=== PATIENT | female | born 1935 | race Caucasian/White ===

== ENCOUNTER 2016-12-11 13:42 | Emergency (ER) | payer MEDICARE, OTHER ==
[2016-12-11 13:56] LABS: #Basophils 0.1 thou/uL (0.0-0.2); #Eosinphils 0.1 thou/uL (0.0-0.7); #Lymphocytes 1.5 thou/uL (1.20-3.40); #Monocytes 0.6 thou/uL (0.11-0.59); #Neutrophils 9.5 thou/uL (1.40-6.50); %Basophils 0.7 % (0.0-1.0); %Eosinophils 0.5 % (0.0-10.0); %Monocytes 5.2 % (0.0-10.0); %Neutrophils 80.7 % (42.0-75.0); Hemoglobin 14.7 g/dL (12.0-16.0); Mean Corpuscular HGB CONC 33.8 g/dL (32.0-36.0); Mean Corpuscular Volume 94.7 fl (81.0-99.0); Mean Platelet Volume 7.7 fL (7.4-10.4); Platelet Count 218 thou/uL (130-400); RBC Distribution Width 11.5 % (11.5-14.5); Red Blood Cell (RBC) Count 4.58 mill/uL (4.20-5.40); White Blood Cell (WBC) Count 11.7 thou/uL (4.8-10.8)
[2016-12-11 14:14] LABS: ALT (SGPT) 24 U/L (0-55); AST (SGOT) 29 U/L (5-34); Albumin 4.1 g/dL (3.4-4.8); Alkaline Phosphatase 75 U/L (40-150); Anion Gap 19 mmol/L (10-20); BUN (Urea Nitrogen) 17 mg/dL (9.8-20.1); Bilirubin, Total 0.5 mg/dL (0.2-1.2); Calc. Creatinine Clearance 0 mL/min (70-130); Calcium 9.5 mg/dL (7.8-10.44); Carbon Dioxide 18 mmol/L (23-31); Chloride 97 mmol/L (98-107); Estimated GFR-MDRD 66; Globulin 3.2 g/dL (2.4-3.5); Glucose 154 mg/dL (83-110); Potassium 3.8 mmol/L (3.5-5.1); Protein, Total 7.3 g/dL (5.8-8.1); Sodium 130 mmol/L (136-145)
[2016-12-11 14:15] LABS: Troponin I Less than 0.010 ng/mL (< 0.028)
[2016-12-11 14:20] LABS: CKMB 9.3 ng/mL (0-6.6)
[2016-12-11 14:26] LABS: Bilirubin Negative (Negative); Blood, Urine Negative (Negative); Clarity Clear (Clear); Glucose, Urine (Dipstick) Negative (Negative); Leukocyte Negative (Negative); Nitrite Negative (Negative); Protein, Urine (Dipstick) Negative (Neg-Trace); Specific Gravity, Urine 1.015 (1.005-1.030); Urobilinogen 0.2 mg/dL (0.2-1.0); pH, Urine 6.5 (5.0-9.0)
[2016-12-11 14:28] LABS: INR-International Normal Ratio 1.7; PTT 42.2 SEC (22.9-36.1); Prothrombin Time 19.8 SEC (12.0-14.7)
--- NOTE | 2016-12-11 22:08 | RAD ---
PORTABLE CHEST 12/11/16 An AP portable film at 1402 shows a normal sized heart for age. The lungs are clear. No infiltrate o r effusion was seen. There is no vascular congestion or edema. Some faint calcification is suggested in the aortic arch. IMPRESSION: No acute thoracic findings. POS: HOME
--- NOTE | 2016-12-12 02:19 | CT ---
PRELIMINARY REPORT/[facility]/EMERGENCY AFTER HOURS PROCEDURE: Addendum created by Kerry Burkett MD on 12/11/2016 2:03 PM Central Time ([place] \T\ [place]) HUGO Phillips was notified of these results by telephone call from Dr. Kerry Burkett 12/11/2016 2:03 PM CDT and acknowledged receipt of this notification. Initial Report created on 12/11/2016 2:01 PM Central Time ([place] \T\ [place]) EXAM: CT Head Without Intravenous Contrast ([id number]) CLINICAL HISTORY: The patient is a 81 years female; Signs and symptoms; Dizziness; Patient HX: Dizziness, nausea, vomi ting onset at noonExamination order is timed 12/11/2016 1:50 PM. TECHNIQUE: Axial computed tomography images of the head/brain without intravenous contrast. COMPARISON: No relevant prior studies available. FINDINGS: BRAIN: The ventricles and sulci are diffusely enlarged, consistent with volume loss / atrophy. There is lucency in the cerebral white matter, consistent with microvascular disease. There is chronic sm all right occipital infarct. Coy white differentiation is intact. There are no extra-axial fluid co llections. No evidence of mass. There is no mass effect or midline shift. VENTRICLES: See above. BONES/JOINTS: Unremarkable as visualized. No acute fracture. SOFT TISSUES: Unremarkable as visualized. VASCULATURE: There is vascular calcification. SINUSES: Unremarkable as visualized. No acute sinusitis. MASTOID AIR CELLS: Unremarkable as visualized. No mastoid effusion. IMPRESSION: 1. No evidence of acute intracranial abnormality. No evidence of acute infarction, hemorrhage, or ma ss. 2. Atrophy, chronic right occipital infarct, and microvascular disease. Thank you for allowing us to participate in the care of your patient. Dictated and Authenticated by: Kerry Burkett MD 12/11/2016 2:01 PM Central Time ([place] \T\ [place]) FINAL REPORT CT OF THE BRAIN WITHOUT CONTRAST 12/11/[address] was done emergently for evaluation of mental status changes. Generalized atrophy is present with mild compensatory dilatation of the ventricles. There is evidenc e of a small old right occipital infarct. Otherwise, chronic ischemic changes predominant. There wer e no findings strongly suggestive of acute stroke. No mass, edema, or bleeding was seen. The visible paranasal sinuses and mastoid air cells are clear. Each IAC was normal in size. IMPRESSION: Chronic changes as noted, but no definite acute intracranial findings. Report in agreement with preliminary reading by [facility]. POS: HOME
== END 2016-12-11 15:13 | disposition short-term general hospital (02) ==
LOC: BURERS 13:42
DX: I63.9 Cerebral infarction, unspecified (principal); E87.1 Hypo-osmolality and hyponatremia; I10 Essential (primary) hypertension; Z79.899 Other long term (current) drug therapy
CPT/HCPCS: 36416; 51701; 70450; 71010; 80053; 81003; 82553; 83605; 84484; 85025; 85610; 85730; 93005; 94760; A4353

== ENCOUNTER 2018-05-13 19:44 | Emergency (ER) | payer MEDICARE, OTHER ==
[2018-05-13] MEDS ORDERED: Ondansetron HCl/PF 4 MG/2 ML Vial ONE (20:12)
[2018-05-13] MEDS ORDERED: Fentanyl 100 MCG/2 ML VIAL ONE ×2 (20:26→20:41)
[2018-05-13 20:35] LABS: #Basophils 0.1 thou/uL (0.0-0.2); #Eosinphils 0.1 thou/uL (0.0-0.7); #Lymphocytes 1.6 thou/uL (1.20-3.40); #Monocytes 0.8 thou/uL (0.11-0.59); #Neutrophils 10.4 thou/uL (1.40-6.50); %Basophils 0.6 % (0.0-1.0); %Eosinophils 0.8 % (0.0-10.0); %Lymphocytes 12.6 % (21.0-51.0); %Neutrophils 80.1 % (42.0-75.0); Hemoglobin 14.5 g/dL (12.0-16.0); Mean Corpuscular HGB CONC 34.8 g/dL (32.0-36.0); Mean Corpuscular Hemoglobin 30.5 pg (27.0-31.0); Mean Corpuscular Volume 87.7 fL (78.0-98.0); Mean Platelet Volume 7.9 fL (7.4-10.4); Platelet Count 323 thou/uL (130-400); RBC Distribution Width 11.9 % (11.5-14.5); Red Blood Cell (RBC) Count 4.76 mill/uL (4.20-5.40)
[2018-05-13 20:45] LABS: ALT (SGPT) 17 U/L (8-55); AST (SGOT) 17 U/L (5-34); Albumin 4.7 g/dL (3.4-4.8); Alkaline Phosphatase 80 U/L (40-150); Anion Gap 17 mmol/L (10-20); BUN (Urea Nitrogen) 15 mg/dL (9.8-20.1); Bilirubin, Total 0.5 mg/dL (0.2-1.2); Calc. Creatinine Clearance 0 mL/min (70-130); Calcium 10.4 mg/dL (7.8-10.44); Carbon Dioxide 24 mmol/L (23-31); Chloride 96 mmol/L (98-107); Estimated GFR-MDRD 63; Glucose 129 mg/dL (83-110); Lipase 37 U/L (8-78); Potassium 3.8 mmol/L (3.5-5.1); Protein, Total 7.7 g/dL (6.0-8.3); Sodium 133 mmol/L (136-145)
[2018-05-13 20:46] LABS: CKMB 3.1 ng/mL (0-6.6); Troponin I Less than 0.010 ng/mL (< 0.028)
[2018-05-13 21:06] LABS: Bilirubin Negative (Negative); Clarity Clear (Clear); Glucose, Urine (Dipstick) Negative (Negative); Leukocyte Negative (Negative); Nitrite Negative (Negative); Protein, Urine (Dipstick) Negative (Neg-Trace); Specific Gravity, Urine 1.015 (1.005-1.030); Urobilinogen 0.2 mg/dL (0.2-1.0); pH, Urine 6.5 (5.0-9.0)
--- NOTE | 2018-05-13 21:13 | RAD ---
PORTABLE CHEST: 05/13/18 An AP portable film at 195 is compared with a 12/11/16 study. There has been no adverse interval change. The heart is normal in size and the lungs are clear. There is no congestion, edema, or pleural fluid. No free air was seen beneath the diaphragm. IMPRESSION: No acute thoracic findings. POS: HOME
--- NOTE | 2018-05-13 22:03 | CT ---
CT ABDOMEN AND PELVIS WITH CONTRAST: 05/13/[address] of the abdomen and pelvis was done for evaluation of nausea, vomiting and abdominal pain. A xial slices were done after giving IV contrast. Coronal and sagittal reconstructions were done afterw ards. There is dilated fluid filled loops of small bowel beginning in the mid small bowel region through th e distal small bowel. Loops are ranging up to 3 cm wide with fluid in them. No particular wall thicke leanne was seen. No free air or free fluid was seen. The colon is decompressed and normal in size. The patient appears to have a mobile cecum with the cecum present in the midline. The lung bases are clear. The liver, spleen, pancreas, adrenal glands, kidneys, gallbladder and abdom inal aorta all showed no acute findings. The right kidney is malrotated. CT of the pelvis was remarkable only for the dilated loops of small bowel. No pelvic masses, fluid co llections, or inflammatory changes were seen. The patient has severe degenerative changes of the low thoracic and lumbar spine. There is nearly a g rade II spondylolisthesis of L4 on L5 that appears to be due to facet arthritis. This narrows the spi nal canal at this region resulting in prominent central canal stenosis. Degenerated discs are seen at all lumbar levels. An additional finding is a small hiatal hernia. IMPRESSION: 1. Dilated fluid filled loops of mid to distal small bowel suggestive of a small bowel obstructi on. 2. Small hiatal hernia. 3. Severe degenerative change of the spine with severe spondylolisthesis of L4 on L5. POS: HOME
--- NOTE | 2018-05-14 07:21 | RAD ---
PORTABLE CHEST: DATE: 05/13/18. FINDINGS: An AP portable film at 2144 is compared with a study done earlier the same evening. The lungs continue to be clear. The heart size is normal and there is no congestive change. In the interval, an NG tube has been placed. While it is difficult to see the tip very well, the NG tube does appear to take a normal course into the proximal stomach. IMPRESSION: No acute changes. Nasogastric tube course seems appropriate. POS: HOME
== END 2018-05-13 22:30 | disposition short-term general hospital (02) ==
LOC: BURERS 19:44
DX: K56.609 Unspecified intestinal obstruction, unspecified as to partial versus complete obstruction (principal); I10 Essential (primary) hypertension; Z79.899 Other long term (current) drug therapy
CPT/HCPCS: 51701; 71045; 74177; 80053; 81003; 82553; 83605; 83690; 84484; 85025; 87040; 93005; 96361; 96374; 96375; A4353; J2405; J3010

== ENCOUNTER 2020-04-27 12:42 | Emergency (ER) | payer MEDICARE, OTHER | END 2020-04-27 13:00 | disposition home or self-care (01) | LOC: BURERS 12:42 | DX: I95.9 Hypotension, unspecified (principal); T50.905A Adverse effect of unspecified drugs, medicaments and biological substances, initial encounter; I10 Essential (primary) hypertension; Z79.899 Other long term (current) drug therapy | CPT/HCPCS: 99281 ==

== ENCOUNTER 2021-01-08 10:46 | Inpatient (IN) | payer MEDICARE, OTHER ==
[2021-01-08 11:18] LABS: Hemoglobin 12.7 g/dL (12.0-16.0); Mean Corpuscular HGB CONC 32.7 g/dL (32.0-36.0); Mean Corpuscular Hemoglobin 28.6 pg (27.0-31.0); Mean Corpuscular Volume 87.5 fL (78.0-98.0); Mean Platelet Volume 6.5 fL (7.4-10.4); Platelet Count 287 thou/uL (130-400); RBC Distribution Width 13.7 % (11.5-14.5); Red Blood Cell (RBC) Count 4.44 mill/uL (4.20-5.40); White Blood Cell (WBC) Count 20.9 thou/uL (4.8-10.8)
[2021-01-08 11:37] LABS: ALT (SGPT) 25 U/L (8-55); AST (SGOT) 18 U/L (5-34); Alkaline Phosphatase 106 U/L (40-110); Anion Gap 18 mmol/L (10-20); BUN (Urea Nitrogen) 14 mg/dL (9.8-20.1); Bilirubin, Total 0.6 mg/dL (0.2-1.2); Calc. Creatinine Clearance 0 mL/min (70-130); Calcium 9.5 mg/dL (7.8-10.44); Carbon Dioxide 23 mmol/L (23-31); Chloride 101 mmol/L (98-107); Globulin 2.5 g/dL (2.4-3.5); Glucose 123 mg/dL (83-110); Potassium 4.2 mmol/L (3.5-5.1); Protein, Total 6.5 g/dL (5.8-8.1); Sodium 138 mmol/L (136-145)
[2021-01-08 11:38] LABS: Band 12 % (5-11); Lymphocytes 2 % (21-51); MDiff Complete? YES; Monocytes 4 % (0-10); Neutrophil 82 % (42-75); Platelet Morphology Comment Appears Adequate; RBC Morphology Normal
[2021-01-08] MEDS ORDERED: Fentanyl 100 MCG/2 ML VIAL ONE ×3 (12:22→20:46)
[2021-01-08 12:28] LABS: Bilirubin Negative (Negative); Blood, Urine Negative (Negative); Clarity Clear (Clear); Glucose, Urine (Dipstick) Negative (Negative); Ketone, Urine Negative (Negative); Leukocyte Negative (Negative); Nitrite Negative (Negative); Protein, Urine (Dipstick) Negative (Neg-Trace); Specific Gravity, Urine 1.015 (1.005-1.030); Urobilinogen 0.2 mg/dL (Less than 2)
[2021-01-08] MEDS: Fentanyl 100 MCG/2 ML VIAL SLOW IVP PRN ×2 (17:38→20:51)
[2021-01-08 17:47] VITALS: BMI 29.7
[2021-01-08] MEDS ORDERED: Ondansetron ODT 4 MG TAB PO PRN (20:34)
[2021-01-08] MEDS ORDERED: Polyethylene Glycol 3350 17 GM Packet PO PRN (20:34)
[2021-01-08] MEDS: Enoxaparin Sodium 40 MG/0.4 ML SYRINGE SC SCH (20:50)
[2021-01-08] MEDS: Atorvastatin Calcium 10 MG TAB PO SCH (20:50)
[2021-01-08] MEDS: Pregabalin 50 MG CAP PO SCH (20:51)
[2021-01-08] MEDS: Mesalamine DR 400 mg Capsule PO SCH (20:52)
[2021-01-08] MEDS ORDERED: ALPRAZolam 0.5 MG TAB PO PRN (21:06)
[2021-01-09] MEDS ORDERED: Fentanyl 100 MCG/2 ML VIAL ONE ×2 (06:22→10:09)
[2021-01-09] MEDS: Fentanyl 100 MCG/2 ML VIAL SLOW IVP PRN ×2 (06:28→10:26)
[2021-01-09 07:13] LABS: #Basophils 0.1 thou/uL (0.0-0.2); #Lymphocytes 1.3 thou/uL (1.20-3.40); #Monocytes 0.8 thou/uL (0.11-0.59); #Neutrophils 10.3 thou/uL (1.40-6.50); %Basophils 0.5 % (0.0-1.0); %Eosinophils 0.4 % (0.0-10.0); %Lymphocytes 10.7 % (21.0-51.0); %Monocytes 6.3 % (0.0-10.0); %Neutrophils 82.1 % (42.0-75.0); Hemoglobin 12.8 g/dL (12.0-16.0); Mean Corpuscular HGB CONC 32.5 g/dL (32.0-36.0); Mean Corpuscular Hemoglobin 28.4 pg (27.0-31.0); Mean Corpuscular Volume 87.6 fL (78.0-98.0); Mean Platelet Volume 6.6 fL (7.4-10.4); Platelet Count 278 thou/uL (130-400); RBC Distribution Width 13.5 % (11.5-14.5); White Blood Cell (WBC) Count 12.5 thou/uL (4.8-10.8)
[2021-01-09] MEDS: Vit A,C & E/Lutein/Minerals Tablet PO SCH (09:56)
[2021-01-09] MEDS: Multivit, Therapeutic 1 TAB PO SCH (09:56)
[2021-01-09] MEDS: Calcium Carbonate 600 MG + Vit D TAB PO SCH (09:57)
[2021-01-09] MEDS: Folic Acid 1 MG TAB PO SCH (09:57)
[2021-01-09] MEDS: Cyanocobalamin (Vitamin B-12) 1,000 MCG TAB PO SCH (09:57)
[2021-01-09] MEDS: Clopidogrel Bisulfate 75 MG TAB PO SCH (09:57)
[2021-01-09] MEDS: Milk Of Magnesia 30 ML UDCUP PO SCH (09:58)
[2021-01-09] MEDS: Mesalamine DR 400 mg Capsule PO SCH ×2 (09:59→21:42)
[2021-01-09] MEDS: Enoxaparin Sodium 40 MG/0.4 ML SYRINGE SC SCH (21:41)
[2021-01-09] MEDS: Acetaminophen 325 MG TAB PO PRN (21:42)
[2021-01-09] MEDS: Atorvastatin Calcium 10 MG TAB PO SCH (21:43)
[2021-01-09] MEDS: Melatonin 3 MG TAB PO SCH (21:44)
[2021-01-09 21:47] LABS: SARS-CoV-2 NAA Rapid Test Not Detected (NotDetected)
[2021-01-09] MEDS: Pregabalin 50 MG CAP PO SCH (22:52)
[2021-01-10] MEDS ORDERED: Fentanyl 100 MCG/2 ML VIAL ONE ×4 (01:28→21:26)
[2021-01-10] MEDS: Fentanyl 100 MCG/2 ML VIAL SLOW IVP PRN ×4 (01:33→21:32)
[2021-01-10 06:01] LABS: #Basophils 0.1 thou/uL (0.0-0.2); #Eosinphils 0.2 thou/uL (0.0-0.7); #Lymphocytes 1.4 thou/uL (1.20-3.40); #Monocytes 1.1 thou/uL (0.11-0.59); #Neutrophils 9.6 thou/uL (1.40-6.50); %Basophils 0.6 % (0.0-1.0); %Eosinophils 1.7 % (0.0-10.0); %Lymphocytes 11.2 % (21.0-51.0); %Monocytes 9.2 % (0.0-10.0); %Neutrophils 77.4 % (42.0-75.0); Hemoglobin 12.2 g/dL (12.0-16.0); Mean Corpuscular HGB CONC 33.7 g/dL (32.0-36.0); Mean Corpuscular Volume 86.1 fL (78.0-98.0); Mean Platelet Volume 7.1 fL (7.4-10.4); Platelet Count 231 thou/uL (130-400); RBC Distribution Width 13.2 % (11.5-14.5); Red Blood Cell (RBC) Count 4.19 mill/uL (4.20-5.40); White Blood Cell (WBC) Count 12.4 thou/uL (4.8-10.8)
[2021-01-10] MEDS: Milk Of Magnesia 30 ML UDCUP PO SCH (09:10)
[2021-01-10] MEDS: Vit A,C & E/Lutein/Minerals Tablet PO SCH (09:10)
[2021-01-10] MEDS: Folic Acid 1 MG TAB PO SCH (09:11)
[2021-01-10] MEDS: Multivit, Therapeutic 1 TAB PO SCH (09:11)
[2021-01-10] MEDS: Cyanocobalamin (Vitamin B-12) 1,000 MCG TAB PO SCH (09:11)
[2021-01-10] MEDS: Clopidogrel Bisulfate 75 MG TAB PO SCH (09:11)
[2021-01-10] MEDS: Calcium Carbonate 600 MG + Vit D TAB PO SCH (09:13)
[2021-01-10] MEDS: Acetaminophen 325 MG TAB PO PRN ×2 (09:41→20:52)
[2021-01-10] MEDS: Mesalamine DR 400 mg Capsule PO SCH ×2 (09:43→20:50)
[2021-01-10 20:34] LABS: SARS-CoV-2 IgG Ab Non-Reactive (NonReactive); SARS-CoV-2 IgG Index 0.02 S/CO (< 1.40)
[2021-01-10] MEDS: Pregabalin 50 MG CAP PO SCH (20:50)
[2021-01-10] MEDS: Atorvastatin Calcium 10 MG TAB PO SCH (20:52)
[2021-01-10] MEDS: Melatonin 3 MG TAB PO SCH (20:52)
[2021-01-10] MEDS: Enoxaparin Sodium 40 MG/0.4 ML SYRINGE SC SCH (20:53)
[2021-01-11 05:59] VITALS: TEMP 97.6
[2021-01-11] MEDS ORDERED: HYDROcodone/Acetaminophen 5/325 mg Tablet PO PRN (07:08)
[2021-01-11] MEDS: Milk Of Magnesia 30 ML UDCUP PO SCH (09:01)
[2021-01-11] MEDS: Cyanocobalamin (Vitamin B-12) 1,000 MCG TAB PO SCH (09:03)
[2021-01-11] MEDS: Clopidogrel Bisulfate 75 MG TAB PO SCH (09:03)
[2021-01-11] MEDS: Calcium Carbonate 600 MG + Vit D TAB PO SCH (09:03)
[2021-01-11] MEDS: Folic Acid 1 MG TAB PO SCH (09:03)
[2021-01-11] MEDS: Multivit, Therapeutic 1 TAB PO SCH (09:03)
[2021-01-11] MEDS: Mesalamine DR 400 mg Capsule PO SCH (09:05)
[2021-01-11] MEDS: Vit A,C & E/Lutein/Minerals Tablet PO SCH (09:14)
[2021-01-11 09:15] VITALS: BP 125/71
== END 2021-01-11 10:33 | disposition swing bed (61) | DRG 536 ==
LOC: BURERS 10:46 → BURMED 13:50
PROVIDERS: ADMIT Family Medicine; ATTEND Family Medicine
DX: S32.592A Other specified fracture of left pubis, initial encounter for closed fracture (principal); K51.90 Ulcerative colitis, unspecified, without complications; W18.30XA Fall on same level, unspecified, initial encounter; D72.829 Elevated white blood cell count, unspecified; F01.50 Vascular dementia, unspecified severity, without behavioral disturbance, psychotic disturbance, mood disturbance, and anxiety; R26.89 Other abnormalities of gait and mobility; E78.5 Hyperlipidemia, unspecified; G62.9 Polyneuropathy, unspecified; F41.9 Anxiety disorder, unspecified; F32.9 Major depressive disorder, single episode, unspecified; E53.8 Deficiency of other specified B group vitamins; R26.9 Unspecified abnormalities of gait and mobility; E55.9 Vitamin D deficiency, unspecified; Z85.3 Personal history of malignant neoplasm of breast; Z90.710 Acquired absence of both cervix and uterus; Z86.73 Personal history of transient ischemic attack (TIA), and cerebral infarction without residual deficits
CPT/HCPCS: 0241U; 36415; 51701; 70450; 71045; 72125; 72192; 80053; 81003; 83605; 85025; 86769; 87040; 93005; 96374; J1650; J3010

== ENCOUNTER 2021-01-11 10:33 | Inpatient (IN) | payer MEDICARE, OTHER ==
[2021-01-11] MEDS ORDERED: Enoxaparin Sodium 40 MG/0.4 ML SYRINGE SC SCH (12:45)
[2021-01-11] MEDS: HYDROcodone/Acetaminophen 5/325 mg Tablet PO PRN (17:07)
[2021-01-11] MEDS: Acetaminophen 325 MG TAB PO PRN (20:00)
[2021-01-11] MEDS: Enoxaparin Sodium 40 MG/0.4 ML SYRINGE SC SCH (21:14)
[2021-01-11] MEDS: Mesalamine DR 400 mg Capsule PO SCH (21:14)
[2021-01-11] MEDS: Pregabalin 50 MG CAP PO SCH (21:15)
[2021-01-11] MEDS: Melatonin 3 MG TAB PO SCH (21:15)
[2021-01-11] MEDS: Atorvastatin Calcium 10 MG TAB PO SCH (21:15)
[2021-01-12 06:02] LABS: Hemoglobin 12.3 g/dL (12.0-16.0); Platelet Count 280 thou/uL (130-400)
[2021-01-12] MEDS: Calcium Carbonate 500 MG TAB PO SCH (09:00)
[2021-01-12] MEDS: Multivit, Therapeutic 1 TAB PO SCH (09:00)
[2021-01-12] MEDS: Folic Acid 1 MG TAB PO SCH (09:00)
[2021-01-12] MEDS: Clopidogrel Bisulfate 75 MG TAB PO SCH (09:00)
[2021-01-12] MEDS ORDERED: Enoxaparin Sodium 40 MG/0.4 ML SYRINGE SC SCH (09:00)
[2021-01-12] MEDS: Vit A,C & E/Lutein/Minerals Tablet PO SCH (09:00)
[2021-01-12] MEDS: Cyanocobalamin (Vitamin B-12) 1,000 MCG TAB PO SCH (09:00)
[2021-01-12] MEDS: Milk Of Magnesia 30 ML UDCUP PO SCH (09:01)
[2021-01-12] MEDS: Mesalamine DR 400 mg Capsule PO SCH ×2 (09:07→20:29)
[2021-01-12] MEDS: HYDROcodone/Acetaminophen 5/325 mg Tablet PO PRN ×2 (09:13→23:26)
[2021-01-12] MEDS: Atorvastatin Calcium 10 MG TAB PO SCH (20:29)
[2021-01-12] MEDS: Enoxaparin Sodium 40 MG/0.4 ML SYRINGE SC SCH (20:29)
[2021-01-12] MEDS: Melatonin 3 MG TAB PO SCH (20:30)
[2021-01-12] MEDS: Pregabalin 50 MG CAP PO SCH (20:30)
[2021-01-12] MEDS: Acetaminophen 325 MG TAB PO PRN (20:31)
[2021-01-13] MEDS: Acetaminophen 325 MG TAB PO PRN ×2 (05:42→19:25)
[2021-01-13] MEDS: Multivit, Therapeutic 1 TAB PO SCH (08:26)
[2021-01-13] MEDS: Vit A,C & E/Lutein/Minerals Tablet PO SCH (08:27)
[2021-01-13] MEDS: Folic Acid 1 MG TAB PO SCH (08:27)
[2021-01-13] MEDS: Cyanocobalamin (Vitamin B-12) 1,000 MCG TAB PO SCH (08:27)
[2021-01-13] MEDS: Mesalamine DR 400 mg Capsule PO SCH ×2 (08:28→20:41)
[2021-01-13] MEDS: Clopidogrel Bisulfate 75 MG TAB PO SCH (08:28)
[2021-01-13] MEDS: Calcium Carbonate 500 MG TAB PO SCH (08:28)
[2021-01-13] MEDS: Milk Of Magnesia 30 ML UDCUP PO SCH (08:28)
[2021-01-13] MEDS: HYDROcodone/Acetaminophen 5/325 mg Tablet PO PRN ×2 (12:52→23:14)
[2021-01-13] MEDS: Melatonin 3 MG TAB PO SCH (20:42)
[2021-01-13] MEDS: Pregabalin 50 MG CAP PO SCH (20:42)
[2021-01-13] MEDS: Atorvastatin Calcium 10 MG TAB PO SCH (20:42)
[2021-01-13] MEDS: Enoxaparin Sodium 40 MG/0.4 ML SYRINGE SC SCH (20:44)
[2021-01-14 05:19] LABS: Hemoglobin 12.7 g/dL (12.0-16.0); Platelet Count 293 thou/uL (130-400)
[2021-01-14] MEDS: Vit A,C & E/Lutein/Minerals Tablet PO SCH (08:25)
[2021-01-14] MEDS: Milk Of Magnesia 30 ML UDCUP PO SCH (08:25)
[2021-01-14] MEDS: Calcium Carbonate 500 MG TAB PO SCH (08:26)
[2021-01-14] MEDS: Multivit, Therapeutic 1 TAB PO SCH (08:26)
[2021-01-14] MEDS: HYDROcodone/Acetaminophen 5/325 mg Tablet PO PRN ×2 (08:26→16:18)
[2021-01-14] MEDS: Folic Acid 1 MG TAB PO SCH (08:27)
[2021-01-14] MEDS: Mesalamine DR 400 mg Capsule PO SCH ×2 (08:27→20:39)
[2021-01-14] MEDS: Clopidogrel Bisulfate 75 MG TAB PO SCH (08:27)
[2021-01-14] MEDS: Cyanocobalamin (Vitamin B-12) 1,000 MCG TAB PO SCH (08:27)
[2021-01-14] MEDS: Pregabalin 50 MG CAP PO SCH (20:40)
[2021-01-14] MEDS: Enoxaparin Sodium 40 MG/0.4 ML SYRINGE SC SCH (20:41)
[2021-01-14] MEDS: Melatonin 3 MG TAB PO SCH (20:41)
[2021-01-14] MEDS: Atorvastatin Calcium 10 MG TAB PO SCH (20:41)
[2021-01-15] MEDS: HYDROcodone/Acetaminophen 5/325 mg Tablet PO PRN ×2 (05:10→21:30)
[2021-01-15] MEDS: Milk Of Magnesia 30 ML UDCUP PO SCH (08:49)
[2021-01-15] MEDS: Cyanocobalamin (Vitamin B-12) 1,000 MCG TAB PO SCH (08:50)
[2021-01-15] MEDS: Clopidogrel Bisulfate 75 MG TAB PO SCH (08:50)
[2021-01-15] MEDS: Vit A,C & E/Lutein/Minerals Tablet PO SCH (08:50)
[2021-01-15] MEDS: Acetaminophen 325 MG TAB PO PRN (08:51)
[2021-01-15] MEDS: Calcium Carbonate 500 MG TAB PO SCH (08:51)
[2021-01-15] MEDS: Folic Acid 1 MG TAB PO SCH (08:51)
[2021-01-15] MEDS: Mesalamine DR 400 mg Capsule PO SCH ×2 (08:51→20:59)
[2021-01-15] MEDS: Multivit, Therapeutic 1 TAB PO SCH (08:51)
[2021-01-15] MEDS: Atorvastatin Calcium 10 MG TAB PO SCH (20:59)
[2021-01-15] MEDS: Enoxaparin Sodium 40 MG/0.4 ML SYRINGE SC SCH (21:00)
[2021-01-15] MEDS: Melatonin 3 MG TAB PO SCH (21:00)
[2021-01-15] MEDS: Pregabalin 50 MG CAP PO SCH (21:01)
[2021-01-16 05:12] LABS: Hemoglobin 12.1 g/dL (12.0-16.0); Platelet Count 311 thou/uL (130-400)
[2021-01-16] MEDS: HYDROcodone/Acetaminophen 5/325 mg Tablet PO PRN ×2 (08:47→16:03)
[2021-01-16] MEDS: Mesalamine DR 400 mg Capsule PO SCH ×2 (08:50→20:58)
[2021-01-16] MEDS: Calcium Carbonate 500 MG TAB PO SCH (08:50)
[2021-01-16] MEDS: Folic Acid 1 MG TAB PO SCH (08:51)
[2021-01-16] MEDS: Vit A,C & E/Lutein/Minerals Tablet PO SCH (08:52)
[2021-01-16] MEDS: Clopidogrel Bisulfate 75 MG TAB PO SCH (08:52)
[2021-01-16] MEDS: Multivit, Therapeutic 1 TAB PO SCH (08:52)
[2021-01-16] MEDS: Cyanocobalamin (Vitamin B-12) 1,000 MCG TAB PO SCH (08:52)
[2021-01-16] MEDS: Milk Of Magnesia 30 ML UDCUP PO SCH (08:55)
[2021-01-16] MEDS: Enoxaparin Sodium 40 MG/0.4 ML SYRINGE SC SCH (20:57)
[2021-01-16] MEDS: Pregabalin 50 MG CAP PO SCH (20:58)
[2021-01-16] MEDS: Atorvastatin Calcium 10 MG TAB PO SCH (20:58)
[2021-01-16] MEDS: Melatonin 3 MG TAB PO SCH (20:58)
[2021-01-17] MEDS: Acetaminophen 325 MG TAB PO PRN ×2 (04:32→17:00)
[2021-01-17] MEDS: HYDROcodone/Acetaminophen 5/325 mg Tablet PO PRN (08:31)
[2021-01-17] MEDS: Milk Of Magnesia 30 ML UDCUP PO SCH (08:33)
[2021-01-17] MEDS: Calcium Carbonate 500 MG TAB PO SCH (08:33)
[2021-01-17] MEDS: Folic Acid 1 MG TAB PO SCH (08:33)
[2021-01-17] MEDS: Clopidogrel Bisulfate 75 MG TAB PO SCH (08:34)
[2021-01-17] MEDS: Cyanocobalamin (Vitamin B-12) 1,000 MCG TAB PO SCH (08:34)
[2021-01-17] MEDS: Mesalamine DR 400 mg Capsule PO SCH ×2 (08:35→20:52)
[2021-01-17] MEDS: Multivit, Therapeutic 1 TAB PO SCH (08:40)
[2021-01-17] MEDS: Vit A,C & E/Lutein/Minerals Tablet PO SCH (08:41)
[2021-01-17] MEDS: Enoxaparin Sodium 40 MG/0.4 ML SYRINGE SC SCH (20:51)
[2021-01-17] MEDS: Atorvastatin Calcium 10 MG TAB PO SCH (20:52)
[2021-01-17] MEDS: Melatonin 3 MG TAB PO SCH (20:52)
[2021-01-17] MEDS: Pregabalin 50 MG CAP PO SCH (20:52)
[2021-01-18] MEDS: Acetaminophen 325 MG TAB PO PRN (04:49)
[2021-01-18 04:52] LABS: Platelet Count 327 thou/uL (130-400)
[2021-01-18] MEDS: Mesalamine DR 400 mg Capsule PO SCH ×2 (08:44→20:56)
[2021-01-18] MEDS: Milk Of Magnesia 30 ML UDCUP PO SCH (08:44)
[2021-01-18] MEDS: Cyanocobalamin (Vitamin B-12) 1,000 MCG TAB PO SCH (08:44)
[2021-01-18] MEDS: Calcium Carbonate 500 MG TAB PO SCH (08:44)
[2021-01-18] MEDS: Vit A,C & E/Lutein/Minerals Tablet PO SCH (08:45)
[2021-01-18] MEDS: Folic Acid 1 MG TAB PO SCH (08:46)
[2021-01-18] MEDS: Multivit, Therapeutic 1 TAB PO SCH (08:46)
[2021-01-18] MEDS: Clopidogrel Bisulfate 75 MG TAB PO SCH (08:46)
[2021-01-18] MEDS: HYDROcodone/Acetaminophen 5/325 mg Tablet PO PRN (08:48)
[2021-01-18] MEDS: Enoxaparin Sodium 40 MG/0.4 ML SYRINGE SC SCH (20:52)
[2021-01-18] MEDS: Atorvastatin Calcium 10 MG TAB PO SCH (20:53)
[2021-01-18] MEDS: Pregabalin 50 MG CAP PO SCH (20:54)
[2021-01-18] MEDS: Melatonin 3 MG TAB PO SCH (20:56)
[2021-01-19] MEDS: Calcium Carbonate 500 MG TAB PO SCH (08:58)
[2021-01-19] MEDS: Clopidogrel Bisulfate 75 MG TAB PO SCH (08:59)
[2021-01-19] MEDS: Folic Acid 1 MG TAB PO SCH (08:59)
[2021-01-19] MEDS: Cyanocobalamin (Vitamin B-12) 1,000 MCG TAB PO SCH (08:59)
[2021-01-19] MEDS: Vit A,C & E/Lutein/Minerals Tablet PO SCH (08:59)
[2021-01-19] MEDS: Mesalamine DR 400 mg Capsule PO SCH ×2 (08:59→20:34)
[2021-01-19] MEDS: Multivit, Therapeutic 1 TAB PO SCH (08:59)
[2021-01-19] MEDS: Milk Of Magnesia 30 ML UDCUP PO SCH (09:00)
[2021-01-19] MEDS: Atorvastatin Calcium 10 MG TAB PO SCH (20:34)
[2021-01-19] MEDS: Pregabalin 50 MG CAP PO SCH (20:34)
[2021-01-19] MEDS: Enoxaparin Sodium 40 MG/0.4 ML SYRINGE SC SCH (20:35)
[2021-01-19] MEDS: Melatonin 3 MG TAB PO SCH (20:35)
[2021-01-20 06:17] LABS: Hemoglobin 11.9 g/dL (12.0-16.0); Platelet Count 388 thou/uL (130-400)
[2021-01-20] MEDS: Calcium Carbonate 500 MG TAB PO SCH (08:55)
[2021-01-20] MEDS: Vit A,C & E/Lutein/Minerals Tablet PO SCH (08:55)
[2021-01-20] MEDS: Mesalamine DR 400 mg Capsule PO SCH ×2 (08:55→20:16)
[2021-01-20] MEDS: Clopidogrel Bisulfate 75 MG TAB PO SCH (08:55)
[2021-01-20] MEDS: Folic Acid 1 MG TAB PO SCH (08:55)
[2021-01-20] MEDS: Multivit, Therapeutic 1 TAB PO SCH (08:55)
[2021-01-20] MEDS: Milk Of Magnesia 30 ML UDCUP PO SCH (08:55)
[2021-01-20] MEDS: Cyanocobalamin (Vitamin B-12) 1,000 MCG TAB PO SCH (08:56)
[2021-01-20] MEDS: Atorvastatin Calcium 10 MG TAB PO SCH (20:16)
[2021-01-20] MEDS: Pregabalin 50 MG CAP PO SCH (20:17)
[2021-01-20] MEDS: Melatonin 3 MG TAB PO SCH (20:18)
[2021-01-20] MEDS: Enoxaparin Sodium 40 MG/0.4 ML SYRINGE SC SCH (20:18)
[2021-01-21] MEDS: Multivit, Therapeutic 1 TAB PO SCH (09:13)
[2021-01-21] MEDS: Vit A,C & E/Lutein/Minerals Tablet PO SCH (09:13)
[2021-01-21] MEDS: Mesalamine DR 400 mg Capsule PO SCH ×2 (09:13→21:55)
[2021-01-21] MEDS: Clopidogrel Bisulfate 75 MG TAB PO SCH (09:13)
[2021-01-21] MEDS: Cyanocobalamin (Vitamin B-12) 1,000 MCG TAB PO SCH (09:13)
[2021-01-21] MEDS: Folic Acid 1 MG TAB PO SCH (09:13)
[2021-01-21] MEDS: Milk Of Magnesia 30 ML UDCUP PO SCH (09:13)
[2021-01-21] MEDS: Losartan Potassium 50 MG TAB PO SCH (09:14)
[2021-01-21] MEDS: Calcium Carbonate 500 MG TAB PO SCH (09:14)
[2021-01-21] MEDS: HYDROcodone/Acetaminophen 5/325 mg Tablet PO PRN (13:37)
[2021-01-21] MEDS: ALPRAZolam 0.5 MG TAB PO PRN (13:40)
[2021-01-21] MEDS: Enoxaparin Sodium 40 MG/0.4 ML SYRINGE SC SCH (21:55)
[2021-01-21] MEDS: Pregabalin 50 MG CAP PO SCH (21:55)
[2021-01-21] MEDS: Melatonin 3 MG TAB PO SCH (21:55)
[2021-01-21] MEDS: Atorvastatin Calcium 10 MG TAB PO SCH (21:55)
[2021-01-22] MEDS ORDERED: Diltiazem 125 MG/25 ML ONE (03:20)
[2021-01-22] MEDS ORDERED: Aspirin Chewable 81 MG TAB ONE (03:21)
[2021-01-22 05:29] LABS: Hemoglobin 11.7 g/dL (12.0-16.0); Platelet Count 405 thou/uL (130-400)
[2021-01-22] MEDS: Acetaminophen 325 MG TAB PO PRN ×2 (05:30→19:56)
[2021-01-22] MEDS: Milk Of Magnesia 30 ML UDCUP PO SCH (08:53)
[2021-01-22] MEDS: Vit A,C & E/Lutein/Minerals Tablet PO SCH (08:53)
[2021-01-22] MEDS: Cyanocobalamin (Vitamin B-12) 1,000 MCG TAB PO SCH (08:53)
[2021-01-22] MEDS: Mesalamine DR 400 mg Capsule PO SCH ×2 (08:53→20:01)
[2021-01-22] MEDS: Folic Acid 1 MG TAB PO SCH (08:54)
[2021-01-22] MEDS: Calcium Carbonate 500 MG TAB PO SCH (08:54)
[2021-01-22] MEDS: Multivit, Therapeutic 1 TAB PO SCH (08:54)
[2021-01-22] MEDS: Losartan Potassium 50 MG TAB PO SCH (08:54)
[2021-01-22] MEDS: Clopidogrel Bisulfate 75 MG TAB PO SCH (08:55)
[2021-01-22] MEDS: HYDROcodone/Acetaminophen 5/325 mg Tablet PO PRN (09:50)
[2021-01-22] MEDS: ALPRAZolam 0.5 MG TAB PO PRN (19:58)
[2021-01-22] MEDS: Pregabalin 50 MG CAP PO SCH (20:00)
[2021-01-22] MEDS: Atorvastatin Calcium 10 MG TAB PO SCH (20:00)
[2021-01-22] MEDS: Enoxaparin Sodium 40 MG/0.4 ML SYRINGE SC SCH (20:01)
[2021-01-22] MEDS: Melatonin 3 MG TAB PO SCH (20:01)
[2021-01-23] MEDS: Calcium Carbonate 500 MG TAB PO SCH (09:03)
[2021-01-23] MEDS: Clopidogrel Bisulfate 75 MG TAB PO SCH (09:03)
[2021-01-23] MEDS: HYDROcodone/Acetaminophen 5/325 mg Tablet PO PRN (09:03)
[2021-01-23] MEDS: Losartan Potassium 50 MG TAB PO SCH (09:05)
[2021-01-23] MEDS: Vit A,C & E/Lutein/Minerals Tablet PO SCH (09:07)
[2021-01-23] MEDS: Folic Acid 1 MG TAB PO SCH (09:07)
[2021-01-23] MEDS: Mesalamine DR 400 mg Capsule PO SCH ×2 (09:08→21:55)
[2021-01-23] MEDS: Cyanocobalamin (Vitamin B-12) 1,000 MCG TAB PO SCH (09:12)
[2021-01-23] MEDS: Multivit, Therapeutic 1 TAB PO SCH (09:12)
[2021-01-23] MEDS: Milk Of Magnesia 30 ML UDCUP PO SCH (09:13)
[2021-01-23] MEDS: Atorvastatin Calcium 10 MG TAB PO SCH (21:55)
[2021-01-23] MEDS: Melatonin 3 MG TAB PO SCH (21:55)
[2021-01-23] MEDS: Pregabalin 50 MG CAP PO SCH (21:55)
[2021-01-23] MEDS: Enoxaparin Sodium 40 MG/0.4 ML SYRINGE SC SCH (21:55)
[2021-01-23] MEDS: ALPRAZolam 0.5 MG TAB PO PRN (22:03)
[2021-01-24 05:36] LABS: Hemoglobin 13.1 g/dL (12.0-16.0); Platelet Count 419 thou/uL (130-400)
[2021-01-24] MEDS: Mesalamine DR 400 mg Capsule PO SCH ×2 (08:36→21:12)
[2021-01-24] MEDS: Multivit, Therapeutic 1 TAB PO SCH (08:36)
[2021-01-24] MEDS: Cyanocobalamin (Vitamin B-12) 1,000 MCG TAB PO SCH (08:37)
[2021-01-24] MEDS: Calcium Carbonate 500 MG TAB PO SCH (08:37)
[2021-01-24] MEDS: Clopidogrel Bisulfate 75 MG TAB PO SCH (08:37)
[2021-01-24] MEDS: Losartan Potassium 50 MG TAB PO SCH (08:38)
[2021-01-24] MEDS: Vit A,C & E/Lutein/Minerals Tablet PO SCH (08:38)
[2021-01-24] MEDS: Folic Acid 1 MG TAB PO SCH (08:39)
[2021-01-24] MEDS: HYDROcodone/Acetaminophen 5/325 mg Tablet PO PRN (08:45)
[2021-01-24] MEDS: Milk Of Magnesia 30 ML UDCUP PO SCH (08:47)
[2021-01-24] MEDS: Enoxaparin Sodium 40 MG/0.4 ML SYRINGE SC SCH (21:11)
[2021-01-24] MEDS: Pregabalin 50 MG CAP PO SCH (21:12)
[2021-01-24] MEDS: Atorvastatin Calcium 10 MG TAB PO SCH (21:12)
[2021-01-24] MEDS: Melatonin 3 MG TAB PO SCH (21:12)
[2021-01-25] MEDS: Mesalamine DR 400 mg Capsule PO SCH ×2 (09:34→20:25)
[2021-01-25] MEDS: Multivit, Therapeutic 1 TAB PO SCH (09:35)
[2021-01-25] MEDS: Vit A,C & E/Lutein/Minerals Tablet PO SCH (09:36)
[2021-01-25] MEDS: Calcium Carbonate 500 MG TAB PO SCH (09:36)
[2021-01-25] MEDS: Clopidogrel Bisulfate 75 MG TAB PO SCH (09:37)
[2021-01-25] MEDS: Losartan Potassium 50 MG TAB PO SCH (09:37)
[2021-01-25] MEDS: Cyanocobalamin (Vitamin B-12) 1,000 MCG TAB PO SCH (09:37)
[2021-01-25] MEDS: Folic Acid 1 MG TAB PO SCH (09:37)
[2021-01-25] MEDS: Milk Of Magnesia 30 ML UDCUP PO SCH (09:38)
[2021-01-25] MEDS: HYDROcodone/Acetaminophen 5/325 mg Tablet PO PRN (09:46)
[2021-01-25] MEDS: Enoxaparin Sodium 40 MG/0.4 ML SYRINGE SC SCH (20:25)
[2021-01-25] MEDS: Melatonin 3 MG TAB PO SCH (20:25)
[2021-01-25] MEDS: Atorvastatin Calcium 10 MG TAB PO SCH (20:25)
[2021-01-25] MEDS: Pregabalin 50 MG CAP PO SCH (20:26)
[2021-01-26 05:52] LABS: Hemoglobin 11.4 g/dL (12.0-16.0); Platelet Count 377 thou/uL (130-400)
[2021-01-26] MEDS: Mesalamine DR 400 mg Capsule PO SCH ×2 (09:04→20:22)
[2021-01-26] MEDS: Losartan Potassium 50 MG TAB PO SCH (09:04)
[2021-01-26] MEDS: Cyanocobalamin (Vitamin B-12) 1,000 MCG TAB PO SCH (09:05)
[2021-01-26] MEDS: Calcium Carbonate 500 MG TAB PO SCH (09:05)
[2021-01-26] MEDS: Clopidogrel Bisulfate 75 MG TAB PO SCH (09:05)
[2021-01-26] MEDS: Folic Acid 1 MG TAB PO SCH (09:09)
[2021-01-26] MEDS: Multivit, Therapeutic 1 TAB PO SCH (09:09)
[2021-01-26] MEDS: Vit A,C & E/Lutein/Minerals Tablet PO SCH (09:09)
[2021-01-26] MEDS: Milk Of Magnesia 30 ML UDCUP PO SCH (09:14)
[2021-01-26] MEDS: Pregabalin 50 MG CAP PO SCH (20:22)
[2021-01-26] MEDS: Atorvastatin Calcium 10 MG TAB PO SCH (20:22)
[2021-01-26] MEDS: Melatonin 3 MG TAB PO SCH (20:22)
[2021-01-26] MEDS: Enoxaparin Sodium 40 MG/0.4 ML SYRINGE SC SCH (20:26)
[2021-01-27] MEDS: Mesalamine DR 400 mg Capsule PO SCH ×2 (08:25→20:19)
[2021-01-27] MEDS: Cyanocobalamin (Vitamin B-12) 1,000 MCG TAB PO SCH (08:26)
[2021-01-27] MEDS: Vit A,C & E/Lutein/Minerals Tablet PO SCH (08:26)
[2021-01-27] MEDS: Calcium Carbonate 500 MG TAB PO SCH (08:27)
[2021-01-27] MEDS: Losartan Potassium 50 MG TAB PO SCH (08:27)
[2021-01-27] MEDS: Folic Acid 1 MG TAB PO SCH (08:27)
[2021-01-27] MEDS: Multivit, Therapeutic 1 TAB PO SCH (08:27)
[2021-01-27] MEDS: Clopidogrel Bisulfate 75 MG TAB PO SCH (08:30)
[2021-01-27] MEDS: Milk Of Magnesia 30 ML UDCUP PO SCH (08:32)
[2021-01-27] MEDS: HYDROcodone/Acetaminophen 5/325 mg Tablet PO PRN (13:11)
[2021-01-27] MEDS: Pregabalin 50 MG CAP PO SCH (20:17)
[2021-01-27] MEDS: ALPRAZolam 0.5 MG TAB PO PRN (20:19)
[2021-01-27] MEDS: Melatonin 3 MG TAB PO SCH (20:19)
[2021-01-27] MEDS: Atorvastatin Calcium 10 MG TAB PO SCH (20:19)
[2021-01-27] MEDS: Enoxaparin Sodium 40 MG/0.4 ML SYRINGE SC SCH (20:22)
[2021-01-28 05:14] LABS: Hemoglobin 12.4 g/dL (12.0-16.0); Platelet Count 381 thou/uL (130-400)
[2021-01-28] MEDS: Milk Of Magnesia 30 ML UDCUP PO SCH (08:42)
[2021-01-28] MEDS: Folic Acid 1 MG TAB PO SCH (08:43)
[2021-01-28] MEDS: Mesalamine DR 400 mg Capsule PO SCH ×2 (08:43→20:14)
[2021-01-28] MEDS: Vit A,C & E/Lutein/Minerals Tablet PO SCH (08:43)
[2021-01-28] MEDS: Losartan Potassium 50 MG TAB PO SCH (08:44)
[2021-01-28] MEDS: Calcium Carbonate 500 MG TAB PO SCH (08:44)
[2021-01-28] MEDS: Clopidogrel Bisulfate 75 MG TAB PO SCH (08:44)
[2021-01-28] MEDS: Multivit, Therapeutic 1 TAB PO SCH (08:44)
[2021-01-28] MEDS: Cyanocobalamin (Vitamin B-12) 1,000 MCG TAB PO SCH (08:44)
[2021-01-28] MEDS: Pregabalin 50 MG CAP PO SCH (20:14)
[2021-01-28] MEDS: Melatonin 3 MG TAB PO SCH (20:15)
[2021-01-28] MEDS: ALPRAZolam 0.5 MG TAB PO PRN (20:15)
[2021-01-28] MEDS: Atorvastatin Calcium 10 MG TAB PO SCH (20:15)
[2021-01-28] MEDS: Enoxaparin Sodium 40 MG/0.4 ML SYRINGE SC SCH (20:16)
[2021-01-29] MEDS: Calcium Carbonate 500 MG TAB PO SCH (08:56)
[2021-01-29] MEDS: Vit A,C & E/Lutein/Minerals Tablet PO SCH (08:57)
[2021-01-29] MEDS: Mesalamine DR 400 mg Capsule PO SCH ×2 (08:57→20:21)
[2021-01-29] MEDS: Losartan Potassium 50 MG TAB PO SCH (08:58)
[2021-01-29] MEDS: Clopidogrel Bisulfate 75 MG TAB PO SCH (08:58)
[2021-01-29] MEDS: Cyanocobalamin (Vitamin B-12) 1,000 MCG TAB PO SCH (08:58)
[2021-01-29] MEDS: Folic Acid 1 MG TAB PO SCH (08:58)
[2021-01-29] MEDS: Multivit, Therapeutic 1 TAB PO SCH (08:58)
[2021-01-29] MEDS: Milk Of Magnesia 30 ML UDCUP PO SCH (08:59)
[2021-01-29] MEDS: Acetaminophen 325 MG TAB PO PRN (09:00)
[2021-01-29] MEDS: Atorvastatin Calcium 10 MG TAB PO SCH (20:21)
[2021-01-29] MEDS: Enoxaparin Sodium 40 MG/0.4 ML SYRINGE SC SCH (20:21)
[2021-01-29] MEDS: Melatonin 3 MG TAB PO SCH (20:22)
[2021-01-29] MEDS: Pregabalin 50 MG CAP PO SCH (20:22)
[2021-01-30 05:45] LABS: Hemoglobin 12.1 g/dL (12.0-16.0); Platelet Count 366 thou/uL (130-400)
[2021-01-30] MEDS: Acetaminophen 325 MG TAB PO PRN (05:48)
[2021-01-30] MEDS: Milk Of Magnesia 30 ML UDCUP PO SCH (10:01)
[2021-01-30] MEDS: Mesalamine DR 400 mg Capsule PO SCH ×2 (10:02→21:16)
[2021-01-30] MEDS: Calcium Carbonate 500 MG TAB PO SCH (10:03)
[2021-01-30] MEDS: Clopidogrel Bisulfate 75 MG TAB PO SCH (10:03)
[2021-01-30] MEDS: Cyanocobalamin (Vitamin B-12) 1,000 MCG TAB PO SCH (10:03)
[2021-01-30] MEDS: Multivit, Therapeutic 1 TAB PO SCH (10:04)
[2021-01-30] MEDS: Losartan Potassium 50 MG TAB PO SCH (10:04)
[2021-01-30] MEDS: Vit A,C & E/Lutein/Minerals Tablet PO SCH (10:05)
[2021-01-30] MEDS: Folic Acid 1 MG TAB PO SCH (10:05)
[2021-01-30 12:37] VITALS: BMI 30.5
[2021-01-30] MEDS: Enoxaparin Sodium 40 MG/0.4 ML SYRINGE SC SCH (21:16)
[2021-01-30] MEDS: Atorvastatin Calcium 10 MG TAB PO SCH (21:17)
[2021-01-30] MEDS: Melatonin 3 MG TAB PO SCH (21:17)
[2021-01-30] MEDS: Pregabalin 50 MG CAP PO SCH (21:17)
[2021-01-31 05:20] LABS: #Basophils 0.1 thou/uL (0.0-0.2); #Eosinphils 0.3 thou/uL (0.0-0.7); #Lymphocytes 1.9 thou/uL (1.20-3.40); #Monocytes 0.7 thou/uL (0.11-0.59); #Neutrophils 6.4 thou/uL (1.40-6.50); %Basophils 0.8 % (0.0-1.0); %Eosinophils 2.7 % (0.0-10.0); %Lymphocytes 20.7 % (21.0-51.0); %Monocytes 7.6 % (0.0-10.0); %Neutrophils 68.3 % (42.0-75.0); Hemoglobin 11.4 g/dL (12.0-16.0); Mean Corpuscular HGB CONC 32.3 g/dL (32.0-36.0); Mean Corpuscular Hemoglobin 28.2 pg (27.0-31.0); Mean Corpuscular Volume 87.4 fL (78.0-98.0); Mean Platelet Volume 6.6 fL (7.4-10.4); Platelet Count 348 thou/uL (130-400); Red Blood Cell (RBC) Count 4.04 mill/uL (4.20-5.40); White Blood Cell (WBC) Count 9.3 thou/uL (4.8-10.8)
[2021-01-31] MEDS: Vit A,C & E/Lutein/Minerals Tablet PO SCH (09:05)
[2021-01-31] MEDS: Mesalamine DR 400 mg Capsule PO SCH ×2 (09:05→21:16)
[2021-01-31] MEDS: Milk Of Magnesia 30 ML UDCUP PO SCH (09:05)
[2021-01-31] MEDS: Losartan Potassium 50 MG TAB PO SCH (09:06)
[2021-01-31] MEDS: Clopidogrel Bisulfate 75 MG TAB PO SCH (09:07)
[2021-01-31] MEDS: Multivit, Therapeutic 1 TAB PO SCH (09:07)
[2021-01-31] MEDS: Calcium Carbonate 500 MG TAB PO SCH (09:07)
[2021-01-31] MEDS: Cyanocobalamin (Vitamin B-12) 1,000 MCG TAB PO SCH (09:07)
[2021-01-31] MEDS: Folic Acid 1 MG TAB PO SCH (09:08)
[2021-01-31] MEDS: HYDROcodone/Acetaminophen 5/325 mg Tablet PO PRN (15:41)
[2021-01-31] MEDS: Enoxaparin Sodium 40 MG/0.4 ML SYRINGE SC SCH (21:15)
[2021-01-31] MEDS: Atorvastatin Calcium 10 MG TAB PO SCH (21:16)
[2021-01-31] MEDS: Melatonin 3 MG TAB PO SCH (21:16)
[2021-01-31] MEDS: Pregabalin 50 MG CAP PO SCH (21:16)
[2021-01-31] MEDS: Acetaminophen 325 MG TAB PO PRN (21:17)
[2021-02-01 05:21] LABS: Hemoglobin 11.3 g/dL (12.0-16.0); Platelet Count 308 thou/uL (130-400)
[2021-02-01] MEDS: Cyanocobalamin (Vitamin B-12) 1,000 MCG TAB PO SCH (08:41)
[2021-02-01] MEDS: Multivit, Therapeutic 1 TAB PO SCH (08:41)
[2021-02-01] MEDS: Folic Acid 1 MG TAB PO SCH (08:41)
[2021-02-01] MEDS: Calcium Carbonate 500 MG TAB PO SCH (08:41)
[2021-02-01] MEDS: Clopidogrel Bisulfate 75 MG TAB PO SCH (08:41)
[2021-02-01] MEDS: Mesalamine DR 400 mg Capsule PO SCH ×2 (08:42→20:23)
[2021-02-01] MEDS: Losartan Potassium 50 MG TAB PO SCH (08:43)
[2021-02-01] MEDS: Vit A,C & E/Lutein/Minerals Tablet PO SCH (08:43)
[2021-02-01] MEDS: Milk Of Magnesia 30 ML UDCUP PO SCH (08:50)
[2021-02-01] MEDS: Acetaminophen 325 MG TAB PO PRN (09:34)
[2021-02-01] MEDS: Enoxaparin Sodium 40 MG/0.4 ML SYRINGE SC SCH (20:23)
[2021-02-01] MEDS: Pregabalin 50 MG CAP PO SCH (20:24)
[2021-02-01] MEDS: Atorvastatin Calcium 10 MG TAB PO SCH (20:24)
[2021-02-01] MEDS: Melatonin 3 MG TAB PO SCH (20:25)
[2021-02-02] MEDS: Milk Of Magnesia 30 ML UDCUP PO SCH (08:20)
[2021-02-02] MEDS: Cyanocobalamin (Vitamin B-12) 1,000 MCG TAB PO SCH (08:24)
[2021-02-02] MEDS: Clopidogrel Bisulfate 75 MG TAB PO SCH (08:25)
[2021-02-02] MEDS: Multivit, Therapeutic 1 TAB PO SCH (08:25)
[2021-02-02] MEDS: Calcium Carbonate 500 MG TAB PO SCH (08:25)
[2021-02-02] MEDS: Acetaminophen 325 MG TAB PO PRN (08:25)
[2021-02-02] MEDS: Losartan Potassium 50 MG TAB PO SCH (08:26)
[2021-02-02] MEDS: Mesalamine DR 400 mg Capsule PO SCH ×2 (08:26→20:05)
[2021-02-02] MEDS: Folic Acid 1 MG TAB PO SCH (08:26)
[2021-02-02] MEDS: Vit A,C & E/Lutein/Minerals Tablet PO SCH (08:27)
[2021-02-02] MEDS: Enoxaparin Sodium 40 MG/0.4 ML SYRINGE SC SCH (20:02)
[2021-02-02] MEDS: Pregabalin 50 MG CAP PO SCH (20:03)
[2021-02-02] MEDS: Atorvastatin Calcium 10 MG TAB PO SCH (20:03)
[2021-02-02] MEDS: ALPRAZolam 0.5 MG TAB PO PRN (20:04)
[2021-02-02] MEDS: Melatonin 3 MG TAB PO SCH (20:04)
[2021-02-03 05:11] LABS: Hemoglobin 11.9 g/dL (12.0-16.0); Platelet Count 313 thou/uL (130-400)
[2021-02-03] MEDS: Losartan Potassium 50 MG TAB PO SCH (08:48)
[2021-02-03] MEDS: Clopidogrel Bisulfate 75 MG TAB PO SCH (08:50)
[2021-02-03] MEDS: Milk Of Magnesia 30 ML UDCUP PO SCH (08:50)
[2021-02-03] MEDS: Cyanocobalamin (Vitamin B-12) 1,000 MCG TAB PO SCH (08:51)
[2021-02-03] MEDS: Calcium Carbonate 500 MG TAB PO SCH (08:51)
[2021-02-03] MEDS: Folic Acid 1 MG TAB PO SCH (08:51)
[2021-02-03] MEDS: Multivit, Therapeutic 1 TAB PO SCH (08:51)
[2021-02-03] MEDS: Vit A,C & E/Lutein/Minerals Tablet PO SCH (08:52)
[2021-02-03] MEDS: Mesalamine DR 400 mg Capsule PO SCH ×2 (08:52→19:36)
[2021-02-03] MEDS: Acetaminophen 325 MG TAB PO PRN ×2 (08:53→15:12)
[2021-02-03] MEDS: Enoxaparin Sodium 40 MG/0.4 ML SYRINGE SC SCH (19:33)
[2021-02-03] MEDS: ALPRAZolam 0.5 MG TAB PO PRN (19:33)
[2021-02-03] MEDS: Atorvastatin Calcium 10 MG TAB PO SCH (19:33)
[2021-02-03] MEDS: Pregabalin 50 MG CAP PO SCH (19:35)
[2021-02-03] MEDS: Melatonin 3 MG TAB PO SCH (19:35)
[2021-02-04] MEDS: Calcium Carbonate 500 MG TAB PO SCH (08:19)
[2021-02-04] MEDS: Clopidogrel Bisulfate 75 MG TAB PO SCH (08:19)
[2021-02-04] MEDS: Folic Acid 1 MG TAB PO SCH (08:19)
[2021-02-04] MEDS: Losartan Potassium 50 MG TAB PO SCH (08:20)
[2021-02-04] MEDS: Cyanocobalamin (Vitamin B-12) 1,000 MCG TAB PO SCH (08:20)
[2021-02-04] MEDS: Milk Of Magnesia 30 ML UDCUP PO SCH (08:21)
[2021-02-04] MEDS: Multivit, Therapeutic 1 TAB PO SCH (08:21)
[2021-02-04] MEDS: Mesalamine DR 400 mg Capsule PO SCH ×2 (08:21→21:06)
[2021-02-04] MEDS: Vit A,C & E/Lutein/Minerals Tablet PO SCH (08:24)
[2021-02-04] MEDS: Acetaminophen 325 MG TAB PO PRN (14:39)
[2021-02-04] MEDS: Pregabalin 50 MG CAP PO SCH (21:05)
[2021-02-04] MEDS: Melatonin 3 MG TAB PO SCH (21:05)
[2021-02-04] MEDS: Enoxaparin Sodium 40 MG/0.4 ML SYRINGE SC SCH (21:06)
[2021-02-04] MEDS: Atorvastatin Calcium 10 MG TAB PO SCH (21:07)
[2021-02-04] MEDS: ALPRAZolam 0.5 MG TAB PO PRN (21:26)
[2021-02-05 05:28] LABS: Platelet Count 299 thou/uL (130-400)
[2021-02-05] MEDS: Vit A,C & E/Lutein/Minerals Tablet PO SCH (08:38)
[2021-02-05] MEDS: Mesalamine DR 400 mg Capsule PO SCH ×2 (08:39→20:44)
[2021-02-05] MEDS: HYDROcodone/Acetaminophen 5/325 mg Tablet PO PRN (08:41)
[2021-02-05] MEDS: Multivit, Therapeutic 1 TAB PO SCH (08:43)
[2021-02-05] MEDS: Clopidogrel Bisulfate 75 MG TAB PO SCH (08:44)
[2021-02-05] MEDS: Calcium Carbonate 500 MG TAB PO SCH (08:44)
[2021-02-05] MEDS: Cyanocobalamin (Vitamin B-12) 1,000 MCG TAB PO SCH (08:44)
[2021-02-05] MEDS: Folic Acid 1 MG TAB PO SCH (08:44)
[2021-02-05] MEDS: Losartan Potassium 50 MG TAB PO SCH (08:44)
[2021-02-05] MEDS: Milk Of Magnesia 30 ML UDCUP PO SCH (08:51)
[2021-02-05] MEDS: Enoxaparin Sodium 40 MG/0.4 ML SYRINGE SC SCH (20:43)
[2021-02-05] MEDS: Melatonin 3 MG TAB PO SCH (20:45)
[2021-02-05] MEDS: Pregabalin 50 MG CAP PO SCH (20:47)
[2021-02-05] MEDS: ALPRAZolam 0.5 MG TAB PO PRN (20:50)
[2021-02-05] MEDS: Atorvastatin Calcium 10 MG TAB PO SCH (20:58)
[2021-02-06] MEDS: Multivit, Therapeutic 1 TAB PO SCH (08:46)
[2021-02-06] MEDS: Clopidogrel Bisulfate 75 MG TAB PO SCH (08:46)
[2021-02-06] MEDS: Vit A,C & E/Lutein/Minerals Tablet PO SCH (08:46)
[2021-02-06] MEDS: Folic Acid 1 MG TAB PO SCH (08:46)
[2021-02-06] MEDS: Calcium Carbonate 500 MG TAB PO SCH (08:46)
[2021-02-06] MEDS: Cyanocobalamin (Vitamin B-12) 1,000 MCG TAB PO SCH (08:46)
[2021-02-06] MEDS: Mesalamine DR 400 mg Capsule PO SCH ×2 (08:46→20:28)
[2021-02-06] MEDS: Losartan Potassium 50 MG TAB PO SCH (08:50)
[2021-02-06] MEDS: Milk Of Magnesia 30 ML UDCUP PO SCH (08:51)
[2021-02-06] MEDS: Acetaminophen 325 MG TAB PO PRN ×2 (09:43→15:21)
[2021-02-06] MEDS: Atorvastatin Calcium 10 MG TAB PO SCH (20:27)
[2021-02-06] MEDS: Pregabalin 50 MG CAP PO SCH (20:28)
[2021-02-06] MEDS: ALPRAZolam 0.5 MG TAB PO PRN (20:28)
[2021-02-06] MEDS: Melatonin 3 MG TAB PO SCH (20:30)
[2021-02-06] MEDS: Enoxaparin Sodium 40 MG/0.4 ML SYRINGE SC SCH (20:30)
[2021-02-07 05:22] LABS: Hemoglobin 11.5 g/dL (12.0-16.0); Platelet Count 269 thou/uL (130-400)
[2021-02-07] MEDS: Milk Of Magnesia 30 ML UDCUP PO SCH (09:26)
[2021-02-07] MEDS: Folic Acid 1 MG TAB PO SCH (09:27)
[2021-02-07] MEDS: Losartan Potassium 50 MG TAB PO SCH (09:27)
[2021-02-07] MEDS: Cyanocobalamin (Vitamin B-12) 1,000 MCG TAB PO SCH (09:28)
[2021-02-07] MEDS: Calcium Carbonate 500 MG TAB PO SCH (09:28)
[2021-02-07] MEDS: Multivit, Therapeutic 1 TAB PO SCH (09:28)
[2021-02-07] MEDS: Vit A,C & E/Lutein/Minerals Tablet PO SCH (09:29)
[2021-02-07] MEDS: Clopidogrel Bisulfate 75 MG TAB PO SCH (09:29)
[2021-02-07] MEDS: Mesalamine DR 400 mg Capsule PO SCH ×2 (09:29→20:32)
[2021-02-07] MEDS: Acetaminophen 325 MG TAB PO PRN (09:30)
[2021-02-07] MEDS: ALPRAZolam 0.5 MG TAB PO PRN (20:23)
[2021-02-07] MEDS: Enoxaparin Sodium 40 MG/0.4 ML SYRINGE SC SCH (20:30)
[2021-02-07] MEDS: Pregabalin 50 MG CAP PO SCH (20:31)
[2021-02-07] MEDS: Melatonin 3 MG TAB PO SCH (20:33)
[2021-02-07] MEDS: Atorvastatin Calcium 10 MG TAB PO SCH (20:33)
[2021-02-08] MEDS: Clopidogrel Bisulfate 75 MG TAB PO SCH (09:36)
[2021-02-08] MEDS: Losartan Potassium 50 MG TAB PO SCH (09:36)
[2021-02-08] MEDS: Multivit, Therapeutic 1 TAB PO SCH (09:38)
[2021-02-08] MEDS: Cyanocobalamin (Vitamin B-12) 1,000 MCG TAB PO SCH (09:38)
[2021-02-08] MEDS: Vit A,C & E/Lutein/Minerals Tablet PO SCH (09:38)
[2021-02-08] MEDS: Mesalamine DR 400 mg Capsule PO SCH ×2 (09:38→20:01)
[2021-02-08] MEDS: Calcium Carbonate 500 MG TAB PO SCH (09:38)
[2021-02-08] MEDS: Folic Acid 1 MG TAB PO SCH (09:39)
[2021-02-08] MEDS: Acetaminophen 325 MG TAB PO PRN (09:39)
[2021-02-08] MEDS: Milk Of Magnesia 30 ML UDCUP PO SCH (09:41)
[2021-02-08] MEDS: ALPRAZolam 0.5 MG TAB PO PRN (19:59)
[2021-02-08] MEDS: Pregabalin 50 MG CAP PO SCH (20:02)
[2021-02-08] MEDS: Enoxaparin Sodium 40 MG/0.4 ML SYRINGE SC SCH (20:03)
[2021-02-08] MEDS: Atorvastatin Calcium 10 MG TAB PO SCH (20:03)
[2021-02-08] MEDS: Melatonin 3 MG TAB PO SCH (20:03)
[2021-02-09 05:58] LABS: Hemoglobin 10.6 g/dL (12.0-16.0); Platelet Count 255 thou/uL (130-400)
[2021-02-09] MEDS: Calcium Carbonate 500 MG TAB PO SCH (08:58)
[2021-02-09] MEDS: Vit A,C & E/Lutein/Minerals Tablet PO SCH (08:58)
[2021-02-09] MEDS: Mesalamine DR 400 mg Capsule PO SCH ×2 (08:58→20:56)
[2021-02-09] MEDS: Losartan Potassium 50 MG TAB PO SCH (09:02)
[2021-02-09] MEDS: Multivit, Therapeutic 1 TAB PO SCH (09:02)
[2021-02-09] MEDS: Cyanocobalamin (Vitamin B-12) 1,000 MCG TAB PO SCH (09:04)
[2021-02-09] MEDS: Folic Acid 1 MG TAB PO SCH (09:04)
[2021-02-09] MEDS: Clopidogrel Bisulfate 75 MG TAB PO SCH (09:04)
[2021-02-09] MEDS: Milk Of Magnesia 30 ML UDCUP PO SCH (09:09)
[2021-02-09] MEDS: HYDROcodone/Acetaminophen 5/325 mg Tablet PO PRN (11:13)
[2021-02-09] MEDS: ALPRAZolam 0.5 MG TAB PO PRN (20:53)
[2021-02-09] MEDS: Acetaminophen 325 MG TAB PO PRN (20:54)
[2021-02-09] MEDS: Enoxaparin Sodium 40 MG/0.4 ML SYRINGE SC SCH (20:55)
[2021-02-09] MEDS: Pregabalin 50 MG CAP PO SCH (20:56)
[2021-02-09] MEDS: Melatonin 3 MG TAB PO SCH (20:56)
[2021-02-09] MEDS: Atorvastatin Calcium 10 MG TAB PO SCH (20:57)
[2021-02-10] MEDS: Multivit, Therapeutic 1 TAB PO SCH (08:55)
[2021-02-10] MEDS: Clopidogrel Bisulfate 75 MG TAB PO SCH (08:56)
[2021-02-10] MEDS: Calcium Carbonate 500 MG TAB PO SCH (08:56)
[2021-02-10] MEDS: Folic Acid 1 MG TAB PO SCH (08:56)
[2021-02-10] MEDS: Vit A,C & E/Lutein/Minerals Tablet PO SCH (08:56)
[2021-02-10] MEDS: Mesalamine DR 400 mg Capsule PO SCH ×2 (08:56→20:55)
[2021-02-10] MEDS: Cyanocobalamin (Vitamin B-12) 1,000 MCG TAB PO SCH (08:57)
[2021-02-10] MEDS: Acetaminophen 325 MG TAB PO PRN (08:57)
[2021-02-10] MEDS: Milk Of Magnesia 30 ML UDCUP PO SCH (08:58)
[2021-02-10] MEDS: Losartan Potassium 50 MG TAB PO SCH (08:59)
[2021-02-10] MEDS: Enoxaparin Sodium 40 MG/0.4 ML SYRINGE SC SCH (20:54)
[2021-02-10] MEDS: Atorvastatin Calcium 10 MG TAB PO SCH (20:55)
[2021-02-10] MEDS: Pregabalin 50 MG CAP PO SCH (20:57)
[2021-02-10] MEDS: Melatonin 3 MG TAB PO SCH (20:58)
[2021-02-10] MEDS: ALPRAZolam 0.5 MG TAB PO PRN (20:59)
[2021-02-11 05:14] LABS: Hemoglobin 11.6 g/dL (12.0-16.0); Platelet Count 267 thou/uL (130-400)
[2021-02-11] MEDS: Acetaminophen 325 MG TAB PO PRN (08:46)
[2021-02-11] MEDS: Milk Of Magnesia 30 ML UDCUP PO SCH (09:26)
[2021-02-11] MEDS: Losartan Potassium 50 MG TAB PO SCH (09:26)
[2021-02-11] MEDS: Vit A,C & E/Lutein/Minerals Tablet PO SCH (09:26)
[2021-02-11] MEDS: Mesalamine DR 400 mg Capsule PO SCH ×2 (09:26→20:17)
[2021-02-11] MEDS: Cyanocobalamin (Vitamin B-12) 1,000 MCG TAB PO SCH (09:27)
[2021-02-11] MEDS: Multivit, Therapeutic 1 TAB PO SCH (09:27)
[2021-02-11] MEDS: Folic Acid 1 MG TAB PO SCH (09:30)
[2021-02-11] MEDS: Clopidogrel Bisulfate 75 MG TAB PO SCH (09:30)
[2021-02-11] MEDS: Calcium Carbonate 500 MG TAB PO SCH (09:30)
[2021-02-11] MEDS: ALPRAZolam 0.5 MG TAB PO PRN (20:16)
[2021-02-11] MEDS: Melatonin 3 MG TAB PO SCH (20:17)
[2021-02-11] MEDS: Atorvastatin Calcium 10 MG TAB PO SCH (20:17)
[2021-02-11] MEDS: Enoxaparin Sodium 40 MG/0.4 ML SYRINGE SC SCH (20:18)
[2021-02-11] MEDS: Pregabalin 50 MG CAP PO SCH (20:18)
[2021-02-12] MEDS: Mesalamine DR 400 mg Capsule PO SCH ×2 (08:32→21:00)
[2021-02-12] MEDS: Calcium Carbonate 500 MG TAB PO SCH (08:33)
[2021-02-12] MEDS: Losartan Potassium 50 MG TAB PO SCH (08:33)
[2021-02-12] MEDS: Clopidogrel Bisulfate 75 MG TAB PO SCH (08:33)
[2021-02-12] MEDS: Folic Acid 1 MG TAB PO SCH (08:33)
[2021-02-12] MEDS: Acetaminophen 325 MG TAB PO PRN ×2 (08:34→12:50)
[2021-02-12] MEDS: Multivit, Therapeutic 1 TAB PO SCH (08:34)
[2021-02-12] MEDS: Vit A,C & E/Lutein/Minerals Tablet PO SCH (08:34)
[2021-02-12] MEDS: Milk Of Magnesia 30 ML UDCUP PO SCH (08:34)
[2021-02-12] MEDS: Cyanocobalamin (Vitamin B-12) 1,000 MCG TAB PO SCH (08:35)
[2021-02-12] MEDS: ALPRAZolam 0.5 MG TAB PO PRN (20:59)
[2021-02-12] MEDS: Enoxaparin Sodium 40 MG/0.4 ML SYRINGE SC SCH (21:00)
[2021-02-12] MEDS: Pregabalin 50 MG CAP PO SCH (21:00)
[2021-02-12] MEDS: Atorvastatin Calcium 10 MG TAB PO SCH (21:01)
[2021-02-12] MEDS: Melatonin 3 MG TAB PO SCH (21:01)
[2021-02-13 05:53] LABS: Hemoglobin 11.2 g/dL (12.0-16.0); Platelet Count 264 thou/uL (130-400)
[2021-02-13] MEDS: Vit A,C & E/Lutein/Minerals Tablet PO SCH (08:09)
[2021-02-13] MEDS: Milk Of Magnesia 30 ML UDCUP PO SCH (08:09)
[2021-02-13] MEDS: Mesalamine DR 400 mg Capsule PO SCH ×2 (08:10→20:44)
[2021-02-13] MEDS: Losartan Potassium 50 MG TAB PO SCH (08:10)
[2021-02-13] MEDS: Calcium Carbonate 500 MG TAB PO SCH (08:11)
[2021-02-13] MEDS: Folic Acid 1 MG TAB PO SCH (08:11)
[2021-02-13] MEDS: Clopidogrel Bisulfate 75 MG TAB PO SCH (08:11)
[2021-02-13] MEDS: Cyanocobalamin (Vitamin B-12) 1,000 MCG TAB PO SCH (08:12)
[2021-02-13] MEDS: Multivit, Therapeutic 1 TAB PO SCH (08:12)
[2021-02-13] MEDS: Acetaminophen 325 MG TAB PO PRN (09:42)
[2021-02-13] MEDS: Pregabalin 50 MG CAP PO SCH (20:45)
[2021-02-13] MEDS: Atorvastatin Calcium 10 MG TAB PO SCH (20:45)
[2021-02-13] MEDS: Melatonin 3 MG TAB PO SCH (20:45)
[2021-02-13] MEDS: Enoxaparin Sodium 40 MG/0.4 ML SYRINGE SC SCH (20:46)
[2021-02-14] MEDS: Mesalamine DR 400 mg Capsule PO SCH ×2 (08:35→20:21)
[2021-02-14] MEDS: Calcium Carbonate 500 MG TAB PO SCH (08:36)
[2021-02-14] MEDS: Multivit, Therapeutic 1 TAB PO SCH (08:41)
[2021-02-14] MEDS: Clopidogrel Bisulfate 75 MG TAB PO SCH (08:41)
[2021-02-14] MEDS: Losartan Potassium 50 MG TAB PO SCH (08:42)
[2021-02-14] MEDS: Cyanocobalamin (Vitamin B-12) 1,000 MCG TAB PO SCH (08:42)
[2021-02-14] MEDS: Milk Of Magnesia 30 ML UDCUP PO SCH (08:43)
[2021-02-14] MEDS: Folic Acid 1 MG TAB PO SCH (08:43)
[2021-02-14] MEDS: Acetaminophen 325 MG TAB PO PRN ×2 (08:50→16:02)
[2021-02-14] MEDS: Vit A,C & E/Lutein/Minerals Tablet PO SCH (08:50)
[2021-02-14] MEDS: Enoxaparin Sodium 40 MG/0.4 ML SYRINGE SC SCH (20:20)
[2021-02-14] MEDS: Pregabalin 50 MG CAP PO SCH (20:20)
[2021-02-14] MEDS: Atorvastatin Calcium 10 MG TAB PO SCH (20:21)
[2021-02-14] MEDS: Melatonin 3 MG TAB PO SCH (20:21)
[2021-02-15 05:36] LABS: Hemoglobin 11.1 g/dL (12.0-16.0); Platelet Count 277 thou/uL (130-400)
[2021-02-15] MEDS: Vit A,C & E/Lutein/Minerals Tablet PO SCH (08:57)
[2021-02-15] MEDS: Mesalamine DR 400 mg Capsule PO SCH ×2 (08:59→20:17)
[2021-02-15] MEDS: Acetaminophen 325 MG TAB PO PRN (08:59)
[2021-02-15] MEDS: Clopidogrel Bisulfate 75 MG TAB PO SCH (09:00)
[2021-02-15] MEDS: Losartan Potassium 50 MG TAB PO SCH (09:00)
[2021-02-15] MEDS: Calcium Carbonate 500 MG TAB PO SCH (09:00)
[2021-02-15] MEDS: Folic Acid 1 MG TAB PO SCH (09:01)
[2021-02-15] MEDS: Multivit, Therapeutic 1 TAB PO SCH (09:02)
[2021-02-15] MEDS: Cyanocobalamin (Vitamin B-12) 1,000 MCG TAB PO SCH (09:02)
[2021-02-15] MEDS: Milk Of Magnesia 30 ML UDCUP PO SCH (09:04)
[2021-02-15] MEDS: Pregabalin 50 MG CAP PO SCH (20:17)
[2021-02-15] MEDS: Melatonin 3 MG TAB PO SCH (20:19)
[2021-02-15] MEDS: ALPRAZolam 0.5 MG TAB PO PRN (20:19)
[2021-02-15] MEDS: Enoxaparin Sodium 40 MG/0.4 ML SYRINGE SC SCH (20:20)
[2021-02-15] MEDS: Atorvastatin Calcium 10 MG TAB PO SCH (20:20)
[2021-02-16] MEDS: Milk Of Magnesia 30 ML UDCUP PO SCH (09:35)
[2021-02-16] MEDS: Folic Acid 1 MG TAB PO SCH (09:35)
[2021-02-16] MEDS: Losartan Potassium 50 MG TAB PO SCH (09:36)
[2021-02-16] MEDS: Clopidogrel Bisulfate 75 MG TAB PO SCH (09:38)
[2021-02-16] MEDS: Mesalamine DR 400 mg Capsule PO SCH ×2 (09:38→20:16)
[2021-02-16] MEDS: Calcium Carbonate 500 MG TAB PO SCH (09:39)
[2021-02-16] MEDS: Cyanocobalamin (Vitamin B-12) 1,000 MCG TAB PO SCH (09:39)
[2021-02-16] MEDS: Multivit, Therapeutic 1 TAB PO SCH (09:39)
[2021-02-16] MEDS: Vit A,C & E/Lutein/Minerals Tablet PO SCH (10:03)
[2021-02-16] MEDS: Acetaminophen 325 MG TAB PO PRN (12:07)
[2021-02-16] MEDS: Melatonin 3 MG TAB PO SCH (20:16)
[2021-02-16] MEDS: Atorvastatin Calcium 10 MG TAB PO SCH (20:16)
[2021-02-16] MEDS: Pregabalin 50 MG CAP PO SCH (20:16)
[2021-02-16] MEDS: Enoxaparin Sodium 40 MG/0.4 ML SYRINGE SC SCH (20:17)
[2021-02-17 05:10] LABS: Hemoglobin 10.7 g/dL (12.0-16.0); Platelet Count 271 thou/uL (130-400)
[2021-02-17] MEDS: Folic Acid 1 MG TAB PO SCH (09:05)
[2021-02-17] MEDS: Clopidogrel Bisulfate 75 MG TAB PO SCH (09:05)
[2021-02-17] MEDS: Mesalamine DR 400 mg Capsule PO SCH ×2 (09:05→20:54)
[2021-02-17] MEDS: Losartan Potassium 50 MG TAB PO SCH (09:08)
[2021-02-17] MEDS: Calcium Carbonate 500 MG TAB PO SCH (09:09)
[2021-02-17] MEDS: Cyanocobalamin (Vitamin B-12) 1,000 MCG TAB PO SCH (09:09)
[2021-02-17] MEDS: Multivit, Therapeutic 1 TAB PO SCH (09:09)
[2021-02-17] MEDS: Milk Of Magnesia 30 ML UDCUP PO SCH ×2 (09:09→09:14)
[2021-02-17] MEDS: Vit A,C & E/Lutein/Minerals Tablet PO SCH (09:09)
[2021-02-17] MEDS: Acetaminophen 325 MG TAB PO PRN (16:08)
[2021-02-17] MEDS: ALPRAZolam 0.5 MG TAB PO PRN (20:54)
[2021-02-17] MEDS: Atorvastatin Calcium 10 MG TAB PO SCH (20:54)
[2021-02-17] MEDS: Melatonin 3 MG TAB PO SCH (20:55)
[2021-02-17] MEDS: Pregabalin 50 MG CAP PO SCH (20:55)
[2021-02-17] MEDS: Enoxaparin Sodium 40 MG/0.4 ML SYRINGE SC SCH (20:56)
[2021-02-18] MEDS: Milk Of Magnesia 30 ML UDCUP PO SCH (08:21)
[2021-02-18] MEDS: Mesalamine DR 400 mg Capsule PO SCH (08:22)
[2021-02-18] MEDS: Losartan Potassium 50 MG TAB PO SCH (08:23)
[2021-02-18] MEDS: Calcium Carbonate 500 MG TAB PO SCH (08:23)
[2021-02-18] MEDS: Vit A,C & E/Lutein/Minerals Tablet PO SCH (08:23)
[2021-02-18] MEDS: Folic Acid 1 MG TAB PO SCH (08:23)
[2021-02-18] MEDS: Clopidogrel Bisulfate 75 MG TAB PO SCH (08:23)
[2021-02-18] MEDS: Cyanocobalamin (Vitamin B-12) 1,000 MCG TAB PO SCH (08:23)
[2021-02-18] MEDS: Multivit, Therapeutic 1 TAB PO SCH (08:23)
[2021-02-18] MEDS: Acetaminophen 325 MG TAB PO PRN (08:24)
[2021-02-18 11:02] LABS: SARS-CoV-2 NAA Rapid Test Not Detected (NotDetected)
[2021-02-18 14:33] VITALS: BP 105/62; TEMP 97.8
== END 2021-02-18 12:24 | DRG 560 ==
LOC: BURMED 10:33
PROVIDERS: ADMIT Family Medicine; ATTEND Family Medicine
DX: S32.592D Other specified fracture of left pubis, subsequent encounter for fracture with routine healing (principal); K51.90 Ulcerative colitis, unspecified, without complications; D72.829 Elevated white blood cell count, unspecified; F01.50 Vascular dementia, unspecified severity, without behavioral disturbance, psychotic disturbance, mood disturbance, and anxiety; R26.89 Other abnormalities of gait and mobility; G62.9 Polyneuropathy, unspecified; E78.5 Hyperlipidemia, unspecified; F41.9 Anxiety disorder, unspecified; F32.9 Major depressive disorder, single episode, unspecified; E53.8 Deficiency of other specified B group vitamins; I10 Essential (primary) hypertension; R41.3 Other amnesia; Z20.822 Contact with and (suspected) exposure to COVID-19; W18.30XD Fall on same level, unspecified, subsequent encounter; Z90.710 Acquired absence of both cervix and uterus; Z98.890 Other specified postprocedural states; Z85.3 Personal history of malignant neoplasm of breast; Z90.12 Acquired absence of left breast and nipple; Z79.02 Long term (current) use of antithrombotics/antiplatelets; Z79.899 Other long term (current) drug therapy
CPT/HCPCS: 0240U; 36415; 72190; 82565; 85014; 85018; 85025; 85049; J1650

== ENCOUNTER 2021-09-26 12:04 | Emergency (ER) | payer MEDICARE, OTHER ==
[2021-09-26 13:15] LABS: #Basophils 0.1 thou/uL (0.0-0.2); #Eosinphils 0.3 thou/uL (0.0-0.7); #Lymphocytes 3.2 thou/uL (1.20-3.40); #Monocytes 1.6 thou/uL (0.11-0.59); #Neutrophils 11.6 thou/uL (1.40-6.50); %Basophils 0.9 % (0.0-1.0); %Eosinophils 1.6 % (0.0-10.0); %Monocytes 9.4 % (0.0-10.0); %Neutrophils 69.1 % (42.0-75.0); Hemoglobin 13.2 g/dL (12.0-16.0); Mean Corpuscular HGB CONC 33.6 g/dL (32.0-36.0); Mean Corpuscular Hemoglobin 28.6 pg (27.0-31.0); Mean Corpuscular Volume 85.2 fL (78.0-98.0); Mean Platelet Volume 6.8 fL (7.4-10.4); Platelet Count 439 thou/uL (130-400); RBC Distribution Width 13.4 % (11.5-14.5); Red Blood Cell (RBC) Count 4.61 mill/uL (4.20-5.40); White Blood Cell (WBC) Count 16.8 thou/uL (4.8-10.8)
[2021-09-26 13:20] LABS: INR-International Normal Ratio 0.9; Prothrombin Time 12.6 sec (12.0-14.7)
[2021-09-26 13:26] LABS: ALT (SGPT) 32 U/L (8-55); AST (SGOT) 15 U/L (5-34); Albumin 3.7 g/dL (3.4-4.8); Alkaline Phosphatase 113 U/L (40-110); Anion Gap 14 mmol/L (10-20); BUN (Urea Nitrogen) 17 mg/dL (9.8-20.1); Bilirubin, Total 0.3 mg/dL (0.2-1.2); Calc. Creatinine Clearance 0 mL/min (70-130); Calcium 9.3 mg/dL (7.8-10.44); Carbon Dioxide 26 mmol/L (23-31); Chloride 102 mmol/L (98-107); Globulin 2.8 g/dL (2.4-3.5); Glucose 102 mg/dL (83-110); Protein, Total 6.5 g/dL (5.8-8.1); Sodium 138 mmol/L (136-145)
[2021-09-26] MEDS ORDERED: Acetaminophen 500 MG TAB ONE (16:20)
== END 2021-09-26 16:15 ==
LOC: BURERS 12:04
DX: J18.9 Pneumonia, unspecified organism (principal); M19.90 Unspecified osteoarthritis, unspecified site; I10 Essential (primary) hypertension; K21.9 Gastro-esophageal reflux disease without esophagitis; E78.5 Hyperlipidemia, unspecified; E03.9 Hypothyroidism, unspecified; Z86.73 Personal history of transient ischemic attack (TIA), and cerebral infarction without residual deficits; Z79.02 Long term (current) use of antithrombotics/antiplatelets; Z79.899 Other long term (current) drug therapy
CPT/HCPCS: 36415; 71045; 80053; 83605; 83880; 84484; 85025; 85610; 85730; 87040; 93005; 94760; 96365; 96366; J1956

== ENCOUNTER 2022-03-05 09:06 | Emergency (ER) | payer MEDICARE, OTHER ==
[2022-03-05] MEDS ORDERED: Acetaminophen 500 MG TAB ONE (09:24)
[2022-03-05] MEDS ORDERED: Bacitracin 1 PK ONE ×2 (09:24→09:29)
== END 2022-03-05 11:21 ==
LOC: BURERS 09:06
DX: S62.335A Displaced fracture of neck of fourth metacarpal bone, left hand, initial encounter for closed fracture (principal); S62.337A Displaced fracture of neck of fifth metacarpal bone, left hand, initial encounter for closed fracture; S01.01XA Laceration without foreign body of scalp, initial encounter; S61.411A Laceration without foreign body of right hand, initial encounter; S41.112A Laceration without foreign body of left upper arm, initial encounter; I10 Essential (primary) hypertension; K21.9 Gastro-esophageal reflux disease without esophagitis; E78.5 Hyperlipidemia, unspecified; E03.9 Hypothyroidism, unspecified; Z86.73 Personal history of transient ischemic attack (TIA), and cerebral infarction without residual deficits; W18.30XA Fall on same level, unspecified, initial encounter; Y92.129 Unspecified place in nursing home as the place of occurrence of the external cause
CPT/HCPCS: 12004; 70450; 71045; 72125

== ENCOUNTER 2022-06-25 14:03 | Outpatient (CLI) | payer MEDICARE, OTHER ==
[2022-06-25 14:22] LABS: Bilirubin Negative (Negative); Blood, Urine Negative (Negative); Clarity Clear (Clear); Glucose, Urine (Dipstick) Negative (Negative); Ketone, Urine Negative (Negative); Leukocyte Trace (Negative); Nitrite Negative (Negative); Protein, Urine (Dipstick) Negative (Neg-Trace); Specific Gravity, Urine 1.015 (1.005-1.030); Urobilinogen 0.2 mg/dL (Less than 2); pH, Urine 6.5 (5.0-9.0)
[2022-06-25 14:31] LABS: Bacteria/HPF Rare-Few HPF (None Seen); RBC/HPF None Seen HPF (0-3); Squamous Epithelial 0-3 HPF (0-3); WBC/HPF 0-3 HPF (0-3)
== END 2022-06-25 14:04 | disposition home or self-care (01) ==
LOC: BURLAB 14:03
PROVIDERS: ATTEND Nurse Practitioner Family
DX: N39.0 Urinary tract infection, site not specified (principal)
CPT/HCPCS: 81001; 87086

== ENCOUNTER 2022-08-28 14:29 | Outpatient (CLI) | payer MEDICARE, OTHER | END 2022-08-28 14:30 | disposition home or self-care (01) | LOC: BURMANOR 14:29 | PROVIDERS: ATTEND Registered Nurse Community Health | DX: M62.81 Muscle weakness (generalized) (principal); M62.50 Muscle wasting and atrophy, not elsewhere classified, unspecified site | CPT/HCPCS: 87804 ==

== ENCOUNTER 2022-09-24 11:31 | Outpatient (CLI) | payer MEDICARE, OTHER | END 2022-09-24 11:32 | disposition home or self-care (01) | LOC: BURRAD 11:31 | PROVIDERS: ATTEND Family Medicine | DX: M25.551 Pain in right hip (principal); M25.552 Pain in left hip; M16.11 Unilateral primary osteoarthritis, right hip ==

== ENCOUNTER 2022-11-06 13:21 | Outpatient (CLI) | payer MEDICARE, OTHER | END 2022-11-06 13:22 | disposition home or self-care (01) | LOC: BURRAD 13:21 | PROVIDERS: ATTEND Nurse Practitioner Family | DX: M86.9 Osteomyelitis, unspecified (principal) ==